=== PATIENT | female | born 1995 | race Caucasian/White ===

== ENCOUNTER 2020-06-27 18:53 | Emergency (ER) | payer MEDICAID ==
[~2020-06-27] VITALS: Ht 162.6 cm; Wt 75.0 kg
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
--- NOTE | 2020-06-27 19:56 | NUR ---
Dr. Agrawalfs bedside to examine patient.
[2020-06-27] MEDS ORDERED: acetaminophen 325mg tablet PO ONE (20:45)
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
--- NOTE | 2020-06-27 20:48 | NUR ---
[facility]: [phone]. Called and spoke to Cheng, advocate. Patient given phone to also talk to Cheng. Cheng is double checking with her emergency crew supervisor and asks we wait "15 minutes" before calling vishnu for patient to be sure admission is approved.
[2020-06-27 20:53] VITALS: BP 110/68
--- NOTE | 2020-06-27 21:14 | NUR ---
Confirmed transport to [facility] w/vishnu Anand called, patient updated.
--- NOTE | 2020-06-27 21:52 | NUR ---
Patient's uncle here in lobby to sampler pickup patient. Patient states she feels safe to go with her uncle to the lodging arranged by [facility] and uncle is willing to drive her there now. Called Cheng at [facility] and confirmed this transportation is acceptable. Address given to uncle. Patient is in clean large short pants and tshirt and has all her paperwork and verbalizes understanding that she is to call Cheng when she arrives at motel room. Patient is in stable condition and in good spirits and amenable to plan of care upon departure with her uncle.
[2020-06-28] MEDS ORDERED: ONDA4TAB6 PO (13:47)
[2020-06-28] MEDS ORDERED: ERYT1OIN6 RIGHTEYE (13:47)
== END 2020-06-27 21:57 | disposition home or self-care (01) ==
LOC: ER 18:53
DX: O9A.211 Injury, poisoning and certain other consequences of external causes complicating pregnancy, first trimester (principal); S00.11XA Contusion of right eyelid and periocular area, initial encounter; Z3A.01 Less than 8 weeks gestation of pregnancy; Z79.2 Long term (current) use of antibiotics; Z79.899 Other long term (current) drug therapy; Y04.0XXA Assault by unarmed brawl or fight, initial encounter; Y93.89 Activity, other specified; Y92.89 Other specified places as the place of occurrence of the external cause; Y99.8 Other external cause status
CPT/HCPCS: 70450; 70482; 99285

== ENCOUNTER → 2020-06-28 | Emergency (ER) | payer MEDICAID ==
[~2020-06-28] VITALS: Ht 162.6 cm; Wt 76.9 kg
[~2020-06-28] MED LIST: ERYT1OIN6 RIGHTEYE; ONDA4TAB6 PO
--- NOTE | 2020-06-28 14:00 | NUR ---
called john/[facility],unable to transport patient back to [facility],Taxi cab called.Patient refused to stay in the lobby,reports feels weak and dizzy.no noted nausea and vomiting.Awaiting for transportation.
[2020-06-28 14:03] VITALS: BP 119/75
== END | disposition home or self-care (01) ==
LOC: ER 12:57
DX: S06.0X9A Concussion with loss of consciousness of unspecified duration, initial encounter (principal); S09.90XA Unspecified injury of head, initial encounter; H57.89 Other specified disorders of eye and adnexa; H10.9 Unspecified conjunctivitis; Z79.2 Long term (current) use of antibiotics; Z79.899 Other long term (current) drug therapy; Y04.8XXA Assault by other bodily force, initial encounter; Y93.89 Activity, other specified; Y92.89 Other specified places as the place of occurrence of the external cause; Y99.8 Other external cause status
CPT/HCPCS: 99284